=== PATIENT | female | born 1970 | race Caucasian/White ===

== ENCOUNTER → 2021-03-03 | Emergency (ER) | payer BC ==
[~2021-03-03] VITALS: Ht 165.1 cm; Wt 54.5 kg
[~2021-03-03] MED LIST: CARV12.5 PO; CefTRIAXone/D5W-Rocephin 1gm 50 ML IV ONE; DULO-31 PO; LORA-269 PO; NIFE30TA95 PO; NIFEdipine XL 30mg tablet PO SCH; OMEP-50 PO; carvedilol 6.25mg tablet PO SCH; cephalexin 250mg capsule PO ONE; duloxetine 30mg CAPSULE.DR PO SCH; normal saline 1000ml 1,000 ML IV ONE; pantoprazole 40mg Tablet.DR PO SCH
--- NOTE | 2021-03-03 19:00 | NUR ---
NO BP OR BLOOD DRAW ON THE LEFT ARM
[2021-03-03 19:55] LABS: BASOPHILS # (AUTO) 0.1 X10'3 (0-0.2); BASOPHILS % (AUTO) 0.8 % (0-1); EOSINOPHILS % (AUTO) 0.5 % (0-6); HEMATOCRIT 37.9 % (35.0-45.0); HEMOGLOBIN 12.4 g/dl (12.0-16.0); LYMPHOCYTES # (AUTO) 1.6 X10'3 (1.1-4.8); LYMPHOCYTES % (AUTO) 25.5 % (21-51); MEAN CORPUSCULAR HEMOGLOBIN 26.8 PG (27.0-31.0); MEAN CORPUSCULAR HGB CONC 32.8 g/dL (33.0-36.5); MEAN CORPUSCULAR VOLUME 81.8 FL (78-98); MEAN PLATELET VOLUME 8.2 FL (7.4-10.4); MONOCYTES # (AUTO) 0.6 X10'3 (0-0.9); MONOCYTES % (AUTO) 8.8 % (2-12); NEUTROPHILS # (AUTO) 4.1 X10'3 (1.8-7.7); NEUTROPHILS % (AUTO) 64.4 % (42-75); PLATELET COUNT 351 X10'3 (140-440); RED BLOOD COUNT 4.63 X10'6 (4.20-5.60); RED CELL DISTRIBUTION WIDTH 17.3 % (11.5-14.5); WHITE BLOOD COUNT 6.4 X10'3 (4.5-11.0)
[2021-03-03 20:05] LABS: ANION GAP 15 (8-16); CHLORIDE 105 MMOL/L (99-107); POTASSIUM 4.5 MMOL/L (3.5-5.1); SODIUM 139 MMOL/L (135-145); TOTAL CARBON DIOXIDE 19.4 MMOL/L (24-32)
--- NOTE | 2021-03-03 20:09 | NUR ---
Patient called sister on Sunday and is reported to have stated she over-medicated herself and slept most of the day. According to the on Sunday evening patient had whiskey and she reports to have taken 3 ativan pills, 3 gabapentin pills and some weed. She states "I wanted to sleep and not wake up to be with my parents". Also reports to have stopped chemo in september of this year, she has had a lot of complications from breast cancer to left breast. Had mastectomy and lymphs removed from that side. Family will call with medication list later this evening. Patient reports only taking 4 pills- unsure of doses. At the moment can only recall nifedipine, and ativan.
[2021-03-03 20:39] LABS: ALANINE AMINOTRANSFERASE 18 U/L (12-78); ALBUMIN 3.6 G/DL (3.4-5.0); ALBUMIN/GLOBULIN RATIO 0.9 (1.1-1.5); ALKALINE PHOSPHATASE 86 IU/L (46-116); ASPARTATE AMINO TRANSFERASE 16 U/L (10-37); BILIRUBIN,TOTAL 0.5 MG/DL (0.1-1.0); BLOOD UREA NITROGEN 29 MG/DL (7-18); BUN/CREATININE RATIO 13.7 (6.6-38.0); CALCIUM 9.5 MG/DL (8.5-10.1); CREATININE 2.11 MG/DL (0.40-0.90); ETHANOL < 0.010 GM/DL (0.0-0.010); GLUCOSE 106 MG/DL (70-104); TOTAL PROTEIN 7.4 G/DL (6.4-8.2); eGFR 25 ML/MIN
[2021-03-03 20:44] LABS: ACETAMINOPHEN < 2.0 UG/ML (10-30)
[2021-03-03 20:45] LABS: URINE HCG NEGATIVE (NEG)
[2021-03-03 20:46] LABS: CLARITY,URINE CLOUDY (Clear); COLOR,URINE YELLOW (Yellow); GLUCOSE, URINE NEGATIVE (Neg); KETONES,URINE NEGATIVE (Neg); LEUKOCYTE ESTERASE ,URINE MODERATE (Neg); NITRITES, URINE POSITIVE (Neg); OCCULT BLOOD,URINE TRACE-INTACT (Neg); PROTEIN,URINE TRACE mg/dl (Neg); UROBILINOGEN,URINE 0.2 E.U/dL (0.2-1.0)
[2021-03-03 20:47] LABS: UA COLLECTION TYPE VOIDED
[2021-03-03 20:54] LABS: BACTERIA,URINE 2+ /HPF (Neg); SQUAMOUS EPITHELIAL CELL,UR FEW /LPF (FEW)
[2021-03-03 20:58] LABS: CAL OXALATE CRYSTALS 2+ /HPF (NEGATIVE)
[2021-03-03 21:12] LABS: URINE AMPHETAMINE SCREEN NEGATIVE (Neg); URINE BARBITUATE SCREEN NEGATIVE (Neg); URINE BENZODIAZEPINES SCREEN NEGATIVE (Neg); URINE CANNABINOID SCREEN POSITIVE (Neg); URINE COCAINE SCREEN NEGATIVE (Neg); URINE METHADONE SCREEN NEGATIVE (Neg); URINE OPIATE SCREEN NEGATIVE (Neg); URINE PHENCYCLIDINE SCREEN NEGATIVE (Neg)
[2021-03-03 22:39] LABS: ALBUMIN 3.2 G/DL (3.4-5.0); ANION GAP 14 (8-16); BLOOD UREA NITROGEN 30 MG/DL (7-18); BUN/CREATININE RATIO 14.2 (6.6-38.0); CALCIUM 8.5 MG/DL (8.5-10.1); CHLORIDE 108 MMOL/L (99-107); CREATININE 2.11 MG/DL (0.40-0.90); GLUCOSE 100 MG/DL (70-104); POTASSIUM 4.5 MMOL/L (3.5-5.1); SODIUM 140 MMOL/L (135-145); eGFR 25 ML/MIN
--- NOTE | 2021-03-04 00:47 | NUR ---
Patient cooperative- ambualted to bathroom with steady gait.
--- NOTE | 2021-03-04 02:00 | NUR ---
Patient has been cooperative- even and unlabored respirations, laying on her side.
--- NOTE | 2021-03-04 03:00 | NUR ---
Patient appears to be asleep, resting with eyes closed.
--- NOTE | 2021-03-04 05:17 | NUR ---
Patient laying in stretcher, laying on her side. Even and unlabored respirations- appears to be asleep.
--- NOTE | 2021-03-04 05:33 | NUR ---
Patient ambulatory to and from bathroom with steady gait.
[2021-03-04] MEDS: LORazepam 0.5 MG tablet PO SCH ×2 (09:10→19:33)
[2021-03-04 17:17] VITALS: BP 99/64
== END ==
LOC: ER 18:38
DX: R45.851 Suicidal ideations (principal); Z20.822 Contact with and (suspected) exposure to COVID-19; F32.9 Major depressive disorder, single episode, unspecified; Z72.89 Other problems related to lifestyle; Z88.2 Allergy status to sulfonamides; Z91.018 Allergy to other foods; Z79.899 Other long term (current) drug therapy
CPT/HCPCS: 36415; 80048; 80053; 80305; 80320; 80329; 81001; 81025; 84145; 84443; 85025; 87635; 96361; 96365; 99285; C9803; J0696; J7030

== ENCOUNTER 2021-03-04 17:50 | Inpatient (IN) | payer BC ==
[~2021-03-04] VITALS: Ht 165.1 cm; Wt 54.6 kg
[~2021-03-04 17:50] MED LIST changes: -CefTRIAXone/D5W-Rocephin 1gm 50 ML IV ONE; -NIFEdipine XL 30mg tablet PO SCH; -carvedilol 6.25mg tablet PO SCH; -cephalexin 250mg capsule PO ONE; -duloxetine 30mg CAPSULE.DR PO SCH; -normal saline 1000ml 1,000 ML IV ONE; -pantoprazole 40mg Tablet.DR PO SCH
[2021-03-04] MEDS ORDERED: loperamide 2mg capsule PO PRN (20:05)
[2021-03-04] MEDS ORDERED: mag hydrox/Alum hydrox/simeth 30ml oral suspension PO PRN (20:05)
[2021-03-04] MEDS ORDERED: magnesium hydroxide 30ml (MOM) UD suspension PO PRN (20:05)
[2021-03-04] MEDS ORDERED: acetaminophen 325mg tablet PO PRN ×2 (20:05)
[2021-03-04] MEDS: traZODone 50mg tablet PO PRN ×2 (21:10→21:36)
[2021-03-04] MEDS ORDERED: clonazePAM 1mg tablet PO ONE (21:25)
--- NOTE | 2021-03-04 21:30 | NUR ---
WEB MARKETING STRATEGIST NOTE: LEGAL HOLD: 5150 for DTS REASON FOR ADMIT: Client reported that she took her BP meds, ativan, and several other prescription meds, texted her five children to tell them she loved them. The clients spouse found her and brought her to the hospital. Client states, "I don't remember him finding me." Client reports she was diagnosed with Breast CA two years ago this month, resulting in a double mastectomy. Client reports, "I'm having a really hard time with this diagnosis." In addition, the clients mother seven years ago. Client has had difficulty grieving her loss. Client reports drinking three beers with dinner. Denies ever experiencing withdrawal symptoms or being ETOH dependent. States, "I was never depressed before I had cancer." Denies prior suicide attempts. History of anxiety. THIS SHIFT: The client arrived on the unit at 20:20 in a wheelchair, accompanied by Albino Phillips. A physical and 2 RN Skin assessment were performed by Kalee Garcia RN and Mila Sorto LVN. Personal belongings were inventoried and she was escorted to her room. The client was sitting in bed and appeared to be distressed and anxious. She was tearful at times. She was cooperative with the admission process. Client received 1 mg Ativan in the ED before coming to the unit. She was given 1 mg Clonazepam Tab PO for anxiety, and 50 mg Trazodone Tab PO for sleep.
[2021-03-04 21:40] VITALS: BP 121/85
[2021-03-05] MEDS: LORazepam 0.5 MG tablet PO SCH ×2 (07:49→20:15)
[2021-03-05] MEDS: pantoprazole 40mg Tablet.DR PO SCH (07:49)
[2021-03-05] MEDS: duloxetine 30mg CAPSULE.DR PO SCH (07:49)
[2021-03-05] MEDS: NIFEdipine XL 30mg tablet PO SCH (07:49)
[2021-03-05] MEDS: carvedilol 6.25mg tablet PO SCH ×2 (07:50→20:15)
[2021-03-05 08:00] VITALS: BP 113/73
[2021-03-05 09:12] LABS: HEMOGLOBIN A1C 5.5 % (4.5-6.2)
[2021-03-05 09:21] LABS: CHOL/HDL RATIO 4.9 (0.00-4.99); CHOLESTEROL 273 MG/DL (0-200); HDL CHOLESTEROL 56 MG/DL (35-60); LDL CHOLESTEROL 158 MG/DL (50-100); TRIGLYCERIDES 261 MG/DL (20-135)
[2021-03-05] MEDS: LORazepam 1 MG tablet PO PRN ×2 (11:46→19:18)
--- NOTE | 2021-03-05 17:12 | NUR ---
NURSING PROGRESS NOTE Legal hold: 5150 Client on involuntary status for DTS Report received from nurse Sara Carey RN with use of SBAR.[] Why are they here: Client reported that she took her BP meds, ativan, and several other prescription meds, texted her five children to tell them she loved them. The clients spouse found her and brought her to the hospital. Client states, "I don't remember him finding me." Client reports she was diagnosed with Breast CA two years ago this month, resulting in a double mastectomy. Client reports, "I'm having a really hard time with this diagnosis." In addition, the clients mother seven years ago. Client has had difficulty grieving her loss. Client reports drinking three beers with dinner. Denies ever experiencing withdrawal symptoms or being ETOH dependent. States, "I was never depressed before I had cancer." Denies prior suicide attempts. History of anxiety. Assessment What has happened this shift: Received pt in bed sleeping at start of shift. Provided morning assessment at the bedside during medication administration. Pt appears depressed with a very flat affect. She later got up and said, "I really don't want to be here." She then asked for a "warm blanket" and went back to bed. S/I, H/I: She denied and said, "I was depressed." Denies H/I. A/VH: Denies Sleep: Napped during the day ADL's: Independent Group attendance: N/A Were Meds taken: Yes she is compliant with oral meds. Any med S/E: None noted or reported Mental Status Exam Appearance: Pt is a short small vásquez haired woman with wearing green scrubs Eye contact: Fair Behavior: Isolates, appears depressed and sad Speech: Clear, normal rate and rhythm Mood: Depressed Affect: Congruent with mood Thought process: Linear Thought Content: Discharge planning Cognition: A/O x4 Insight: Fair Judgment: Poor Interventions PRN's used: Ativan x1 Therapeutic interventions: Provided 1:1 assessment with therapeutic communication and active listening, medication administration/education/monitoring, encouraged independent ADL's, monitored q15 minute safety checks. Restraints/seclusion/emergency medication: N/A Justification: Pt needs crisis interruption with medication management and monitoring in a safe and therapeutic environment until stable.
[2021-03-05 19:00] VITALS: BP 143/99
[2021-03-05] MEDS: cephalexin 500mg capsule PO SCH (20:15)
--- NOTE | 2021-03-06 00:49 | NUR ---
Nursing Progress Note: Legal hold: 5150 for danger to self Report received from Doc YEE with use of SBAR REASON FOR ADMIT: Client reported that she took her BP meds, ativan, and several other prescription meds, texted her five children to tell them she loved them. The clients spouse found her and brought her to the hospital. Client states, "I don't remember him finding me." Client reports she was diagnosed with Breast CA two years ago this month, resulting in a double mastectomy. Client reports, "I'm having a really hard time with this diagnosis." In addition, the clients mother seven years ago. Client has had difficulty grieving her loss. Client reports drinking three beers with dinner. Denies ever experiencing withdrawal symptoms or being ETOH dependent. States, "I was never depressed before I had cancer." Denies prior suicide attempts. History of anxiety. Assessment What has happened this shift: The patient isolated to her shift the entire evening. When approached for the evening assessment she was friendly and cooperative but tearful off and on throughout the assessment. She verbalized "I feel bad that I hurt my family" She did state that she had been in contact with them since the overdose and they were loving and supportive of her. She admitted that she wanted to go to sleep and never wake up and is still unsure if she regrets taking the overdose. She stated that her two top stressors are her health and the stress of her job. 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 She stated that she felt very anxious and that she was wanting to go home to be with her dog and her . "I feel very sad" She denies A/V hallucinations. S/I, H/I: see above note A/VH: The patient denies ADL's: The patient has not showered today and she was encouraged to shower tomorrow am Group attendance: the patient stated she did not attend any groups Were meds taken: Yes Any med S/E None reported or observed Mental Status Exam Appearance: petite woman who appears disheveled Eye contact: WNL Behavior: Withdrawn, isolative Speech: spontaneous with moderate rate and rhythm Mood: "very sad" and high anxiety Affect: congruent to stated mood Thought process: logical replies but negative Thought Content: quilt, suicidal thoughts, helpless and hopeless Cognition: alert and oriented Insight: fair Judgment: fair Interventions PRN's used: ativan and tylenol Therapeutic interventions: One to one with the patient to assess severity of depressive symptoms and self harm risk. She remains on q 15 minute safety checks. Encouraged to include groups as part of her treatment here at [facility]. Medication education provided. Justification of Continued Inpatient Treatment: The patient continues to report feelings of helplessness hopelessness and is ambivalent about regretting her suicide attempt. She remains a risk for self harm if not in the structured therapeutic environment of the inpatient unit.
[2021-03-06] MEDS: duloxetine 30mg CAPSULE.DR PO SCH (07:51)
[2021-03-06] MEDS: pantoprazole 40mg Tablet.DR PO SCH (07:51)
[2021-03-06] MEDS: cephalexin 500mg capsule PO SCH ×2 (07:52→20:17)
[2021-03-06] MEDS: LORazepam 0.5 MG tablet PO SCH ×2 (07:52→20:22)
[2021-03-06] MEDS: carvedilol 6.25mg tablet PO SCH ×2 (07:57→20:17)
[2021-03-06] MEDS: NIFEdipine XL 30mg tablet PO SCH (07:57)
[2021-03-06 08:00] VITALS: BP 122/87
[2021-03-06] MEDS: LORazepam 1 MG tablet PO PRN ×2 (09:01→15:05)
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
[2021-03-06 19:55] VITALS: BP 127/93
[2021-03-06] MEDS: traZODone 50mg tablet PO PRN ×2 (21:24→22:41)
[2021-03-06] MEDS: atorvastatin 20mg tablet PO SCH (21:55)
[2021-03-06] MEDS: cefpodoxime proxetil 100mg tablet PO SCH (21:55)
--- NOTE | 2021-03-07 01:25 | NUR ---
NURSING PROGRESS NOTE Legal hold: 5150 Client on involuntary status for DTS Report received from nurse Sara Carey RN with use of SBAR.[] Why are they here: Client reported that she took her BP meds, ativan, and several other prescription meds, texted her five children to tell them she loved them. The clients spouse found her and brought her to the hospital. Client states, "I don't remember him finding me." Client reports she was diagnosed with Breast CA two years ago this month, resulting in a double mastectomy. Client reports, "I'm having a really hard time with this diagnosis." In addition, the clients mother seven years ago. Client has had difficulty grieving her loss. Client reports drinking three beers with dinner. Denies ever experiencing withdrawal symptoms or being ETOH dependent. States, "I was never depressed before I had cancer." Denies prior suicide attempts. History of anxiety. Assessment What has happened this shift: Received pt in bed sleeping. Pt stayed in her room most of this shift, coming out to get the phone to make calls. She was med compliant and cooperative. Pt said I'm staying out of the way of that rima. S/I, H/I: Pt denies saying she would not "because of my kids." A/VH: Denies Sleep: See sleep hrs. ADL's: Independent Group attendance: N/A Were Meds taken: Yes Any med S/E: None noted or reported Mental Status Exam Appearance: Small vásquez haired woman wearing green scrubs Eye contact: Fair Behavior: Isolates, appears depressed and sad Speech: Clear, normal rate and rhythm Mood: Depressed Affect: Congruent with mood Thought process: Linear Thought Content: Discharge planning Cognition: A/O x4 Insight: Fair Judgment: Poor Interventions PRN's used: Ativan x1 Therapeutic interventions: Provided 1:1 assessment with therapeutic communication and active listening, medication administration/education/monitoring, encouraged independent ADL's, monitored q15 minute safety checks. Restraints/seclusion/emergency medication: N/A Justification: Pt needs crisis interruption with medication management and monitoring in a safe and therapeutic environment until stable.
[2021-03-07 08:00] VITALS: BP 134/90
[2021-03-07] MEDS: pantoprazole 40mg Tablet.DR PO SCH (09:13)
[2021-03-07] MEDS: NIFEdipine XL 30mg tablet PO SCH (09:13)
[2021-03-07] MEDS: duloxetine 30mg CAPSULE.DR PO SCH (09:13)
[2021-03-07] MEDS: atorvastatin 20mg tablet PO SCH (09:13)
[2021-03-07] MEDS: fenofibrate 145mg tablet PO SCH (09:13)
[2021-03-07] MEDS: LORazepam 0.5 MG tablet PO SCH ×2 (09:14→20:05)
[2021-03-07] MEDS: carvedilol 6.25mg tablet PO SCH ×2 (09:14→20:06)
[2021-03-07] MEDS: cefpodoxime proxetil 100mg tablet PO SCH ×2 (09:14→17:50)
--- NOTE | 2021-03-07 09:49 | NUR ---
Pt. attended group today. We walked about how we all look at the world differently due to our core beliefs. These core beliefs then inform thoughts and behaviors. Each pt. identified one negative core belief and then wrote out three truths that contradict their negative beliefs to work on thinking differently. Pt. was reluctant to come into group at first as she reported to this Electrostatic Painter that she is a introvert and didn't like groups. She decided to come and opened up in group. She shared that she her core beliefs about herself are that she is ugly, abnormal and weak. She reported currently the one that is standing out the most to her is her feelings of weakness. She reported she feels physically and mentally weak and being at [facility] is a challenge for her. As she progressed through group listening to others she was able to report that she can remember that she has survived many things in her past such and she decided to change her cognition to "I am strong". She also really identified with another peer who reported that the label of "mentally ill" is not what defines her. At the end of the group she reported she was happy that she had come. She was alert and oriented X4. Her thought content and thought process was WNL. Her demeanor was calm, a bit timid but she make the chose to open up during the group even though it was difficult for her. Delmi Fagan LCSW
[2021-03-07 12:37] LABS: BASOPHILS # (AUTO) 0.1 X10'3 (0-0.2); EOSINOPHILS # (AUTO) 0.1 X10'3 (0-0.9); EOSINOPHILS % (AUTO) 1.8 % (0-6); HEMATOCRIT 39.2 % (35.0-45.0); LYMPHOCYTES # (AUTO) 1.3 X10'3 (1.1-4.8); LYMPHOCYTES % (AUTO) 24.8 % (21-51); MEAN CORPUSCULAR HEMOGLOBIN 26.7 PG (27.0-31.0); MEAN CORPUSCULAR HGB CONC 33.1 g/dL (33.0-36.5); MEAN CORPUSCULAR VOLUME 80.6 FL (78-98); MEAN PLATELET VOLUME 8.2 FL (7.4-10.4); MONOCYTES # (AUTO) 0.5 X10'3 (0-0.9); MONOCYTES % (AUTO) 9.8 % (2-12); NEUTROPHILS # (AUTO) 3.3 X10'3 (1.8-7.7); NEUTROPHILS % (AUTO) 62.6 % (42-75); PLATELET COUNT 313 X10'3 (140-440); RED BLOOD COUNT 4.86 X10'6 (4.20-5.60); RED CELL DISTRIBUTION WIDTH 16.5 % (11.5-14.5); WHITE BLOOD COUNT 5.3 X10'3 (4.5-11.0)
[2021-03-07 12:56] LABS: ALANINE AMINOTRANSFERASE 23 U/L (12-78); ALBUMIN 3.7 G/DL (3.4-5.0); ALKALINE PHOSPHATASE 70 IU/L (46-116); ANION GAP 20 (8-16); ASPARTATE AMINO TRANSFERASE 22 U/L (10-37); BILIRUBIN,TOTAL 0.5 MG/DL (0.1-1.0); BLOOD UREA NITROGEN 18 MG/DL (7-18); BUN/CREATININE RATIO 15.1 (6.6-38.0); CALCIUM 9.5 MG/DL (8.5-10.1); CHLORIDE 102 MMOL/L (99-107); CREATININE 1.19 MG/DL (0.40-0.90); GLUCOSE 71 MG/DL (70-104); MAGNESIUM 1.9 MG/DL (1.5-2.4); PHOSPHORUS 3.8 MG/DL (2.3-4.5); POTASSIUM 4.1 MMOL/L (3.5-5.1); SODIUM 138 MMOL/L (135-145); TOTAL CARBON DIOXIDE 16.4 MMOL/L (24-32); TOTAL PROTEIN 7.3 G/DL (6.4-8.2); eGFR 48 ML/MIN
[2021-03-07] MEDS: LORazepam 1 MG tablet PO PRN (13:06)
--- NOTE | 2021-03-07 15:33 | NUR ---
Nursing Progress Note: Legal hold: 5150 Client on involuntary status for DTS Report received from nurse with use of SBAR: JOSELITO Snow Why are they here: Client reported that she took her BP meds, ativan, and several other prescription meds, texted her five children to tell them she loved them. The clients spouse found her and brought her to the hospital. Client states, "I don't remember him finding me." Client reports she was diagnosed with Breast CA two years ago this month, resulting in a double mastectomy. Client reports, "I'm having a really hard time with this diagnosis." In addition, the clients mother seven years ago. Client has had difficulty grieving her loss. Client reports drinking three beers with dinner. Denies ever experiencing withdrawal symptoms or being ETOH dependent. States, "I was never depressed before I had cancer." Denies prior suicide attempts. History of anxiety. Assessment What has happened this shift: Received pt. sleeping in bed at the beginning of the shift, she was awoken by staff for breakfast however refused r/t fatigued and decreased appetite. Pt's son called later in the morning and she awoke eager to talk with him. 1:1 completed later at bedside, pt. presents as cooperative, anxious, guarded, withdrawn, and fatigued. She denies any S/I, H/I, A/V/MOLINA, and no delusional statements made. However, pt. admits to ongoing depression and some anxiety, she becomes tearful and states, "I'm ashamed for what I did, and I don't want to hurt my family anymore." Pt. goes on to tell this consumer loan underwriter with some difficulty about the situation which brought her into the hospital. She reported that is was recently the anniversary of her parents in 2011 with whom she was very close. Also, the 27 of February was her late mother's birthday, and the whole family used to celebrate, but this year no one was able to and she felt alone. Pt. also admits that she had recently been fighting with her , and decided to go to bed and overdose. Pt. remains withdrawn throughout the day, and interacts minimally with others. She does attend group, however continues to consume a minimal amount at most meals. Will continue to monitor. S/I, H/I: Pt. denies A/VH: Denies, does not appear internally preoccupied Sleep: Sleep hours are 6, pt. naps intermittently during the day ADL's: Pt. requires some encouragement Group attendance: Yes Were meds taken: Yes Any med S/E: None Mental Status Exam Appearance: Somewhat disheveled r/t laying in bed, however appropriately dressed Eye contact: Fair Behavior: Cooperative, anxious, guarded, withdrawn, and fatigued Speech: Soft, WNL Mood: Guarded Affect: Constricted Thought process: Linear Thought Content: Ongoing depression Cognition: A&O X4 Insight: Poor Judgment: Poor Interventions PRN's used: None Therapeutic interventions: Introduced self and established rapport, maintained a safe and therapeutic environment, ensured contract for safety, provided clear and simple instructions, monitored behaviors and need for intervention, and maintained Q 15min safety checks. Restraints/seclusion/emergency medication: N/A Justification of Continued Inpatient Treatment: Per Dr. Yanes, pt. continues to require interruption of current crisis and a safe and supportive environment.
[2021-03-07] MEDS: traZODone 50mg tablet PO PRN ×2 (20:05→21:41)
[2021-03-07 20:29] VITALS: BP 145/87
--- NOTE | 2021-03-07 23:48 | NUR ---
NURSING PROGRESS NOTE Legal hold: 5150 Client on involuntary status for DTS Report received from nurse JOSELITO Roach with use of SBAR.[] Why are they here: Client reported that she took her BP meds, ativan, and several other prescription meds, texted her five children to tell them she loved them. The clients spouse found her and brought her to the hospital. Client states, "I don't remember him finding me." Client reports she was diagnosed with Breast CA two years ago this month, resulting in a double mastectomy. Client reports, "I'm having a really hard time with this diagnosis." In addition, the clients mother seven years ago. Client has had difficulty grieving her loss. Client reports drinking three beers with dinner. Denies ever experiencing withdrawal symptoms or being ETOH dependent. States, "I was never depressed before I had cancer." Denies prior suicide attempts. History of anxiety. Assessment What has happened this shift: Received pt in bed sleeping. Pt stayed in her room most of this shift, coming out to get the phone to make calls. She was med compliant and cooperative. Pt said I'm concentrating on my home work. S/I, H/I: Pt denies saying she would not "because of my kids." A/VH: Denies Sleep: See sleep hrs. ADL's: Independent Group attendance: N/A Were Meds taken: Yes Any med S/E: None noted or reported Mental Status Exam Appearance: Small vásquez haired woman wearing green scrubs Eye contact: Fair Behavior: Isolates, appears depressed and sad Speech: Clear, normal rate and rhythm Mood: Depressed Affect: Congruent with mood Thought process: Linear Thought Content: Discharge planning Cognition: A/O x4 Insight: Fair Judgment: Poor Interventions PRN's used:Trazodone Therapeutic interventions: Provided 1:1 assessment with therapeutic communication and active listening, medication administration/education/monitoring, encouraged independent ADL's, monitored q15 minute safety checks. Restraints/seclusion/emergency medication: N/A Justification: Pt needs crisis interruption with medication management and monitoring in a safe and therapeutic environment until stable.
[2021-03-08 08:56] VITALS: BP 118/79
[2021-03-08] MEDS: duloxetine 30mg CAPSULE.DR PO SCH ×2 (08:57→12:47)
[2021-03-08] MEDS: atorvastatin 20mg tablet PO SCH (08:57)
[2021-03-08] MEDS: pantoprazole 40mg Tablet.DR PO SCH (08:57)
[2021-03-08] MEDS: LORazepam 0.5 MG tablet PO SCH ×2 (08:57→20:13)
[2021-03-08] MEDS: NIFEdipine XL 30mg tablet PO SCH (08:57)
[2021-03-08] MEDS: carvedilol 6.25mg tablet PO SCH ×2 (08:57→20:15)
[2021-03-08] MEDS: fenofibrate 145mg tablet PO SCH (09:00)
[2021-03-08] MEDS: cefpodoxime proxetil 100mg tablet PO SCH ×2 (09:00→17:53)
--- NOTE | 2021-03-08 13:07 | NUR ---
Nursing Progress Note: Legal hold: 5250 Client on involuntary status for DTS Report received from nurse with use of SBAR: JOSELITO Escalante Why are they here: Client reported that she took her BP meds, ativan, and several other prescription meds, texted her five children to tell them she loved them. The clients spouse found her and brought her to the hospital. Client states, "I don't remember him finding me." Client reports she was diagnosed with Breast CA two years ago this month, resulting in a double mastectomy. Client reports, "I'm having a really hard time with this diagnosis." In addition, the clients mother seven years ago. Client has had difficulty grieving her loss. Client reports drinking three beers with dinner. Denies ever experiencing withdrawal symptoms or being ETOH dependent. States, "I was never depressed before I had cancer." Denies prior suicide attempts. History of anxiety. Assessment What has happened this shift: Received pt. sleeping in bed at the beginning of the shift, she was awoken by staff for breakfast however again refused r/t fatigued and decreased appetite. Pt. awoke later in the morning and was compliant with medications, she also accepted some saltine crackers with encouragement from this medical technical writer. Pt. attended the patio with other patients, and reported she enjoyed "Getting some fresh air." Pt's was supposed to come visit during visiting hours, but he did not show. Pt. telephoned him and then retreated to her room where she sat reading in bed. 1:1 completed at bedside, pt. denies S/I and states, "I'm still so ashamed for what I did." This medical technical writer provided active listening and positive encouragement, and pt. reported contentment. She admits that she continues to experience some ongoing depression and anxiety, and felt upset when her did not come to visit. However, pt. reports, she was able to call him and found out that it was not because he didn't want to, but because he was busy at work. Pt. states, "Its a breakthrough for me, I didn't let my mind jump to conclusions." Pt. attends group, and is observed to be interacting minimally with others throughout the day. S/I, H/I: Pt. denies A/VH: Denies, does not appear internally preoccupied Sleep: Sleep hours are 7, pt. naps intermittently during the day ADL's: Pt. requires some encouragement Group attendance: Yes Were meds taken: Yes Any med S/E: None Mental Status Exam Appearance: Neat and appropriately dressed Eye contact: Fair Behavior: Cooperative, anxious, and fatigued Speech: Soft, WNL Mood: Guarded Affect: Constricted Thought process: Linear Thought Content: Ongoing depression Cognition: A&O X4 Insight: Poor Judgment: Poor Interventions PRN's used: None Therapeutic interventions: Maintained a safe and therapeutic environment, ensured contract for safety, provided clear and simple instructions, monitored behaviors and need for intervention, provided active listening and positive encouragement, and maintained Q 15min safety checks. Restraints/seclusion/emergency medication: N/A Justification of Continued Inpatient Treatment: Per Dr. Izquierdo, pt. continues to require medication adjustments and a safe and therapeutic environment. She would be at high risk if discharge.
--- NOTE | 2021-03-08 14:37 | NUR ---
Pt. attended group today. We talking about developing coping skills. We mostly talked about grounding and this Commercial Fisher lead different grounding exercises such as 958 breathing techniques, 54220 grounding technique, and scaling emotional pain levels. Pts left with a repertoire of ideas for coping skills they can work on and practice. Pt. engaged well in group today. She reported that she was feeling pretty good today and shared how last night she was struggling after being told she couldn't leave [facility] yet. She reported she chose to take some time out to process, talk to a support person, and then go to group today which she feels has given her a more positive mindset. She was alert and oriented X 4. Her thought content and thought process was WNL. Her mood seemed a bit sad but she was open and willing to work toward feeling better. She reported she feels more accepting about staying until the end of the week. She was alert and oriented X 4. Her thought content and thought process was WNL. She was open and friendly to her peers and this Commercial Fisher. She remained calm throughout the group and was pleasant to interact with. Delmi Fagan, SCOREKEEPER
[2021-03-08 20:00] VITALS: BP 133/96
[2021-03-08] MEDS: traZODone 50mg tablet PO PRN ×2 (20:13→21:26)
--- NOTE | 2021-03-09 00:29 | NUR ---
Nursing Progress Note: Legal hold: 5250 Client on involuntary status for DTS Report received from nurse with use of SBAR: JOSELITO Roach Why are they here: Client reported that she took her BP meds, ativan, and several other prescription meds, texted her five children to tell them she loved them. The clients spouse found her and brought her to the hospital. Client states, "I don't remember him finding me." Client reports she was diagnosed with Breast CA two years ago this month, resulting in a double mastectomy. Client reports, "I'm having a really hard time with this diagnosis." In addition, the clients mother seven years ago. Client has had difficulty grieving her loss. Client reports drinking three beers with dinner. Denies ever experiencing withdrawal symptoms or being ETOH dependent. States, "I was never depressed before I had cancer." Denies prior suicide attempts. History of anxiety. Assessment What has happened this shift: Received pt. in her room at the beginning of the shift, 1:1 completed at bedside, pt. denies S/I and states, "I'm still so ashamed for what I did." She admits that she continues to experience some ongoing depression and anxiety, Pt came out of her room for snack and was med compliant. Pt made and received several phone calls this after noon. S/I, H/I: Pt. denies A/VH: Denies, does not appear internally preoccupied Sleep: See sleep hrs. ADL's: Pt. requires some encouragement Group attendance: Yes Were meds taken: Yes Any med S/E: None Mental Status Exam Appearance: Neat and appropriately dressed Eye contact: Fair Behavior: Cooperative, anxious, and fatigued Speech: Soft, WNL Mood: Guarded Affect: Constricted Thought process: Linear Thought Content: Ongoing depression Cognition: A&O X4 Insight: Poor Judgment: Poor Interventions PRN's used: None Therapeutic interventions: Maintained a safe and therapeutic environment, ensured contract for safety, provided clear and simple instructions, monitored behaviors and need for intervention, provided active listening and positive encouragement, and maintained Q 15min safety checks. Restraints/seclusion/emergency medication: N/A Justification of Continued Inpatient Treatment: Per Dr. Izquierdo, pt. continues to require medication adjustments and a safe and therapeutic environment. She would be at high risk if discharge.
[2021-03-09 08:00] VITALS: BP 107/74
[2021-03-09] MEDS: atorvastatin 20mg tablet PO SCH (08:37)
[2021-03-09] MEDS: fenofibrate 145mg tablet PO SCH (08:38)
[2021-03-09] MEDS: LORazepam 0.5 MG tablet PO SCH ×2 (08:38→20:22)
[2021-03-09] MEDS: cefpodoxime proxetil 100mg tablet PO SCH ×2 (08:38→18:02)
[2021-03-09] MEDS: carvedilol 6.25mg tablet PO SCH ×2 (08:38→20:22)
[2021-03-09] MEDS: pantoprazole 40mg Tablet.DR PO SCH (08:38)
[2021-03-09] MEDS: NIFEdipine XL 30mg tablet PO SCH (08:38)
--- NOTE | 2021-03-09 11:44 | NUR ---
Initial: Pt admit for depression, SI, and UTI. Currently on a regular diet, overall with poor PO intake. Pt with mostly 25% PO intake and meal refusals. Noted in justice professor pt reports fatigue and decreased appetite. PO intake up to 100% at lunch and dinner 03/08 though back down to 25% PO intake at breakfast this morning. Overall pt not meeting estimated nutrient needs. Recommend Ensure Enlive TID to optimize PO intake while appetite is low. ONS to be sent following MD approval in EMR. LBM 03/06 however pt documented to have chronic loose stools. Will continue to follow closely and make recommendations as appropriate. Recommendations: 1) Continue regular diet; encourage PO intake 2) Ensure Enlive TID; pending MD approval in EMR 3) Bowel care per rx 4) Weekly scaled weights Addendum: 03/09/21 at [address] Amended: Links added.
[2021-03-09] MEDS: duloxetine 30mg CAPSULE.DR PO SCH (13:15)
[2021-03-09] MEDS: LORazepam 1 MG tablet PO PRN (15:56)
--- NOTE | 2021-03-09 16:18 | NUR ---
Nursing Progress Note: Legal hold: 5250 Client on involuntary status for DTS Report received from nurse with use of SBAR: JOSELITO Escalante Why are they here: Client reported that she took her BP meds, ativan, and several other prescription meds, texted her five children to tell them she loved them. The clients spouse found her and brought her to the hospital. Client states, "I don't remember him finding me." Client reports she was diagnosed with Breast CA two years ago this month, resulting in a double mastectomy. Client reports, "I'm having a really hard time with this diagnosis." In addition, the clients mother seven years ago. Client has had difficulty grieving her loss. Client reports drinking three beers with dinner. Denies ever experiencing withdrawal symptoms or being ETOH dependent. States, "I was never depressed before I had cancer." Denies prior suicide attempts. History of anxiety. Assessment What has happened this shift: Received pt. sleeping in bed at the beginning of the shift, she was awoken for breakfast by staff, however again refused r/t fatigue. However, pt. later did get up independently and attend breakfast in the Group Room with others. She retreated to bed afterwards, and remained here throughout the morning reading, journaling, and napping intermittently. 1:1 completed, pt. denies any S/I and states, "I'm feeling better than I have in my life!" She does admit to some ongoing depression and anxiety r/t missing her family and a desire to discharge. Pt. was able to speak to her on the telephone and he will be bringing in some belongings for her and will drop them off with security. Pt's has been unable to visit during visiting hours r/t work, and this teletypewriter operator encouraged her to talk with her social sciences lecturer about the possibility of setting up a visit at a different time, pt. reported understanding. She remained up during the afternoon interacting appropriately with others. S/I, H/I: Pt. denies A/VH: Denies, does not appear internally preoccupied Sleep: Sleep hours are 3.5, pt. naps intermittently during the day ADL's: Pt. requires some encouragement Group attendance: No Were meds taken: Yes Any med S/E: None Mental Status Exam Appearance: Neat and appropriately dressed Eye contact: Fair Behavior: Cooperative, anxious, and fatigued Speech: Soft, WNL Mood: Guarded Affect: Constricted Thought process: Linear Thought Content: Ongoing depression and preoccupation with desire to discharge Cognition: A&O X4 Insight: Poor Judgment: Fair Interventions PRN's used: Ativan Therapeutic interventions: Maintained a safe and therapeutic environment, ensured contract for safety, provided clear and simple instructions, monitored behaviors and need for intervention, provided active listening and positive encouragement, and maintained Q 15min safety checks. Restraints/seclusion/emergency medication: N/A Justification of Continued Inpatient Treatment: Per Dr. Izquierdo, pt. continues to require medication adjustments and a safe and therapeutic environment. She would be at high risk if discharge.
[2021-03-09] MEDS: traZODone 50mg tablet PO PRN ×2 (20:22→22:03)
[2021-03-09 20:42] VITALS: BP 128/96
--- NOTE | 2021-03-10 00:51 | NUR ---
Nursing Progress Note: Legal hold: 5250 Client on involuntary status for DTS Report received from nurse with use of SBAR: JOSELITO De Luna Why are they here: Client reported that she took her BP meds, ativan, and several other prescription meds, texted her five children to tell them she loved them. The clients spouse found her and brought her to the hospital. Client states, "I don't remember him finding me." Client reports she was diagnosed with Breast CA two years ago this month, resulting in a double mastectomy. Client reports, "I'm having a really hard time with this diagnosis." In addition, the clients mother seven years ago. Client has had difficulty grieving her loss. Client reports drinking three beers with dinner. Denies ever experiencing withdrawal symptoms or being ETOH dependent. States, "I was never depressed before I had cancer." Denies prior suicide attempts. History of anxiety. Assessment What has happened this shift: Pt seen in the community room socializing with peers at time of shift change. Pt denies SI/SH/HI/AVH and reports some continued depression and anxiety relating to not being able to discharge today like she thought she would and Dr. Izquierdo informing her that she will be staying a few more days. Pt reports sadness that she has not been able to visit with her due to him owning a [email or web address] business and is unable to come from 10-11am. Pt also reports missing her dog as she is used to sleeping with her at night and reports loneliness at night due to sleeping alone. Pt states Dr. Izquierdo told her he believed she was still depressed with some suicidal ideations. Pt reports she has not had any SI during her entire stay here but is okay with staying a few more days to make sure I dont have to come back. Pt smiles and is tearful during assessment and further states I went through my therapy notes and wrote stuff down so I have all my coping mechanisms right here. S/I, H/I: Pt. denies A/VH: Denies, does not appear internally preoccupied Sleep: see sleep assessment ADL's: Independent Group attendance: NA Were meds taken: Yes Any med S/E: None reported or observed Mental Status Exam Appearance: Neat and appropriately dressed in personal clothing Eye contact: Fair Behavior: Cooperative, anxious Speech: Soft, WNL Mood: okay Affect: depressed, anxious Thought process: Linear Thought Content: loneliness and wanting to discharge and see Cognition: A&OX4 Insight: fair Judgment: Fair Interventions PRN's used: trazodone Therapeutic interventions: Maintained a safe and therapeutic environment, ensured contract for safety, provided clear and simple instructions, monitored behaviors and need for intervention, provided active listening and positive encouragement, and maintained Q 15min safety checks. Restraints/seclusion/emergency medication: N/A Justification of Continued Inpatient Treatment: Per Dr. Izquierdo, pt. continues to require medication adjustments and a safe and therapeutic environment. She would be at high risk if discharge.
[2021-03-10] MEDS: NIFEdipine XL 30mg tablet PO SCH (08:32)
[2021-03-10] MEDS: cefpodoxime proxetil 100mg tablet PO SCH (08:33)
[2021-03-10] MEDS: LORazepam 0.5 MG tablet PO SCH (08:33)
[2021-03-10] MEDS: fenofibrate 145mg tablet PO SCH (08:33)
[2021-03-10] MEDS: carvedilol 6.25mg tablet PO SCH (08:33)
[2021-03-10] MEDS: atorvastatin 20mg tablet PO SCH (08:34)
[2021-03-10] MEDS: pantoprazole 40mg Tablet.DR PO SCH (08:34)
[2021-03-10 08:42] VITALS: BP 104/74
--- NOTE | 2021-03-10 09:48 | NUR ---
PROBABLE CAUSE HEARING Patients Name: Danii Monaco Admission Date: 03/04/21 Date of 5150: 03/04/21 Written by: [facility] Criteria: DTS, DTO, GD Summary of Facts: Client presented at the ED for mental health evaluation. Client reported last night he took gabapentin, Ativan, hoped never to wake up. BIB sister who states she made suicidal statements 4/6 weeks ago. Client on Sunday took a bunch of my meds to sleep and note wake up. then when she did wake up she took a bunch more until she was sleeping and unresponsive. Clt still wants to sleep and not wake up, has thoughts of other means. Client reports she has dealt with sadness starting in 2011 that has gotten worse and worse. Client reports it worsened going through breast cancer tx w/isolation over the past year. Client has not been in tx for depression Date of 5250: 03/07/21 Written by: Felecia Criteria: DTS Summary of Facts: This pt was admitted to this unit after od on various medicine. She continues to endorse profound depressive symptoms, passive suicidal thoughts, hopelessness. In my opinion she is a risk to self Diagnosis: MDD Behavior during past 48 HRS: The patient reports that yesterday was a better day, she felt much more calmer less depressed, initially she denied any passive suicidal thoughts, however as I discussed with her in regards to her general which she has written, she stated maybe in the morning she had those thoughts of not being alive, and be with her parents. Denies any psychotic symptoms including auditory visual or tactile hallucinations FOOD: 25% SLEEPIN ADLS: Ind FCI: Has home and family MEDICATION DOSAGE FREQUENCY DURATION Cymbalta 30 mg WL Ativan 0.5 mg po bid Ativan 1 mg prn q 6 last took yesterday Trazodone 50 mg prn hs last took last night
--- NOTE | 2021-03-10 12:21 | NUR ---
Nursing Progress Note: Legal hold: 5250 Client on involuntary status for DTS Report received from nurse with use of SBAR: Ava RN Why are they here: Client reported that she took her BP meds, ativan, and several other prescription meds, texted her five children to tell them she loved them. The clients spouse found her and brought her to the hospital. Client states, "I don't remember him finding me." Client reports she was diagnosed with Breast CA two years ago this month, resulting in a double mastectomy. Client reports, "I'm having a really hard time with this diagnosis." In addition, the clients mother seven years ago. Client has had difficulty grieving her loss. Client reports drinking three beers with dinner. Denies ever experiencing withdrawal symptoms or being ETOH dependent. States, "I was never depressed before I had cancer." Denies prior suicide attempts. History of anxiety. Assessment What has happened this shift: Pt was social today, observed interacting with other patients in an appropriate manner. Pt is friendly and cooperative for all care and assessments. During 1:1, pt spoke about her recent stressors and how they contributed to her feeling suicidal. Pt no longer feels suicidal and feels like she is ready to go home but understands the doctors reasoning for wanting her to stay a couple more days. Pt denies any physical complaints except for diarrhea, which she says is chronic. S/I, H/I: Pt. denies A/VH: Denies, does not appear internally preoccupied Sleep: see sleep assessment ADL's: Pt. requires some encouragement Group attendance: No Were meds taken: Yes Any med S/E: None Mental Status Exam Appearance: Neat and appropriately dressed Eye contact: Fair Behavior: Cooperative, anxious, and fatigued Speech: Soft, WNL Mood: Guarded Affect: Constricted Thought process: Linear Thought Content: Ongoing depression and preoccupation with desire to discharge Cognition: A&O X4 Insight: Poor Judgment: Fair Interventions PRN's used: Ativan Therapeutic interventions: Maintained a safe and therapeutic environment, ensured contract for safety, provided clear and simple instructions, monitored behaviors and need for intervention, provided active listening and positive encouragement, and maintained Q 15min safety checks. Restraints/seclusion/emergency medication: N/A Justification of Continued Inpatient Treatment: Per Dr. Izquierdo, pt. continues to require medication adjustments and a safe and therapeutic environment. She would be at high risk if discharge.
[2021-03-10] MEDS: duloxetine 30mg CAPSULE.DR PO SCH (13:23)
[2021-03-10] MEDS: LORazepam 1 MG tablet PO PRN (13:24)
--- NOTE | 2021-03-10 16:29 | NUR ---
Pt 5250 was rescinded by the co founder and chief strategy officer in the hearing. Pt will be discharging today.
[2021-03-10] MEDS ORDERED: TRAZ-251 PO (16:32)
[2021-03-10] MEDS ORDERED: CARV6.253 PO (16:32)
[2021-03-10] MEDS ORDERED: PANT40TA54 PO (16:32)
[2021-03-10] MEDS ORDERED: NIFE30TA95 PO (16:32)
[2021-03-10] MEDS ORDERED: ATOR20TA66 PO (16:32)
[2021-03-10] MEDS ORDERED: CEFP100T7 PO (16:32)
[2021-03-10] MEDS ORDERED: DULO60CA45 PO (16:32)
[2021-03-10] MEDS ORDERED: Lorazepam PO (16:32)
[2021-03-10] MEDS ORDERED: FENO145T25 PO (16:32)
[2021-03-10] MEDS ORDERED: DULO30CA52 PO (16:32)
[2021-03-10] MEDS ORDERED: LORA-269 PO (16:36)
--- NOTE | 2021-03-10 18:14 | NUR ---
Discharge Note: pt was dc'd at approx 1745 and was escorted to the front of the hospital and picked up by her . Pt won her 5250 hearing and was released. pt believes she is ready to go home. all belongings were returned to pt. pt was informed of after care instructions and her medications were sent to her pharmacy.
== END 2021-03-10 17:45 | disposition home or self-care (01) | DRG 885 ==
LOC: ADULT MH 17:50
PROVIDERS: ADMIT Psychiatry & Neurology Psychiatry; ATTEND Psychiatry & Neurology Psychiatry
DX: F33.2 Major depressive disorder, recurrent severe without psychotic features (principal); N17.9 Acute kidney failure, unspecified; N18.9 Chronic kidney disease, unspecified; T50.912A Poisoning by multiple unspecified drugs, medicaments and biological substances, intentional self-harm, initial encounter; N39.0 Urinary tract infection, site not specified; E03.9 Hypothyroidism, unspecified; E78.1 Pure hyperglyceridemia; E78.5 Hyperlipidemia, unspecified; F12.90 Cannabis use, unspecified, uncomplicated; F41.9 Anxiety disorder, unspecified; F10.20 Alcohol dependence, uncomplicated; R94.6 Abnormal results of thyroid function studies; I12.9 Hypertensive chronic kidney disease with stage 1 through stage 4 chronic kidney disease, or unspecified chronic kidney disease; K21.9 Gastro-esophageal reflux disease without esophagitis; Y92.89 Other specified places as the place of occurrence of the external cause; Z79.899 Other long term (current) drug therapy; Z80.1 Family history of malignant neoplasm of trachea, bronchus and lung; Z80.3 Family history of malignant neoplasm of breast; Z85.3 Personal history of malignant neoplasm of breast; Z88.2 Allergy status to sulfonamides; Z90.13 Acquired absence of bilateral breasts and nipples; Z92.21 Personal history of antineoplastic chemotherapy; Z98.82 Breast implant status
CPT/HCPCS: 36415; 80053; 80061; 83036; 83735; 84100; 84439; 85025; 87081